=== PATIENT | female | born 1975 ===

== ENCOUNTER 2025-03-17 20:02 | Outpatient (REF) | payer OTHER, SELFPAY ==
--- OUTSIDE RECORDS SUMMARY | 2017-09-06 09:10 | XMS_ITS | Continuity of Care Document ---
Author Organization [facility] Address [address] [place] [address] Phone Care Team Providers Care Instructional Support Technician Name Role Phone Willa Mims MD Unavailable Unavailable Allergies, Adverse Reactions, Alerts Substance Reaction Status Criticality penicillin G Active No Information Problems Condition Type Effective Dates (start - stop) Clini [facility] Status Comments No Known Problems Procedures Procedure Date Cytopath Cerv/vag Thin Prep; R 18 Preven Meds E&m Estab Pt; 018 Smear Prim W/intrpt; Wet Mnt W 18 Culture Chlamydia Cult Bact Screen Only Sngl Org 18 Offic/outpt E&m Estab Low-mod 8 Cath-intro/inj Hysterosono/jose 15 Preven Meds E&m Estab Pt; 015 Postop F/u Visit Incld Global 4 Offic/outpt E&m Estab Low-mod 4 Cytopath Cerv/vag Thin Prep; R 14 Init Preven Meds E&m New Pt; Results Test Name Date and Time Measure Units Reference Range Abnormal Flag Status Comments Panel Description: THINPREP PAP SMEAR Final THINPREP PAP SMEAR See Note Final RMHCASE REPORTGynecologic Cytology Report Case: [id number] Authorizing Provider: Willa Mims, Collected: 09/06/2017 First Screen: Sade Valverde Received: 09/07/2017 04:29 PM Specimen: THINPREP PAP SMEAR, Cervix LMP5/31/18INTERPRETATI ONPredominance of coccobacilli consistent with shift in vaginal flora GENERAL CATEGORIZATIONNegative for intraepithelial lesion or malignancySPECIMEN ADEQUACYSatisfactory for evaluation; transformation zone/endocervical component presentEDUCATIONAL NOTEThe Pap smear is a screening test for the detection of cervical cancer and its precursor lesions. False positive and false negative results can occur. The test should be performed at regular intervals, and positive results should be confirmed before definitive therapy. Additional testing methods may be helpful in detecting abnormalities or in clinical management.HPV RESULTSHPV 16 : Negative HPV 18 : Negative HPV, Other HR Types : Negative Assay performed using [employer] 4800 system utilizing Real-Time PCR to amplify target HPV DNA. This system specifically identifies HPV16 and HPV18 while concurrently detecting the other twelve high risk types (31,33,35,39,45,51,52, 56,58,59,66,68). 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, [place], [place], [id number] , [place]. tel:[phone] Offic/outpt E&m Estab Low-mod [facility], [address], [place], [place], [id number], [place] tel:[phone] [facility] STD testing (chief complaint) Other specified noninflammatory disorders of vaginaSTD exposure 8 Fel[address]ouch. [address] [place], [id number] , [place]. tel: [phone] [facility], [address], [place], [place], [id number], tel:[phone] [facility] No Information 5 Gildardo Moise. [address] [place] [place], [place], [id number] , [place]. 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 [address] [place], [place], [id number] , [place]. tel: [phone] Offic/outpt E&m Estab Low-mod [facility], [address], [place], [place], [id number], [place] tel:[phone] [facility] post op tuble reversal in [place] (chief complaint) Postop check 4 Gildardo Moise. [address] [place], [id number] , [place]. 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 [place], [id number] , [place]. tel: [phone] Family History Family Member Type Diagnosis Age At Onset Maternal grandmother Problem (finding) malignant neopl asm of ovary Mother Problem (finding) hypertension Payers Payer name Insurance type Covered republican ID [facility] [place] [id number] Social History Type Description Quantity Date Captured Comments Alcohol Use Details Caffeine Use Details Unknown Tobacco Use Status No Information Smoking Status Never smoker Non-Smoking Tobacco Use Details : No Details Available : No Details Available [id number] SexFemale Vital Signs Date / Time: Height Weight BMI Pulse Rate Blood Pressure Temperature Respiratory Rate Body Surface Area Head Circumference Head Circ. Percentile Wt./Isaac. Percentile BMI percentile Pulse Ox Inhaled Ox 1:59 PM 62.00 in 91.626 kg (202.00 lbs) 36.9 5 kg/m eter (2) 124/82 mm[Hg] Chief Complaint And Reason For Visit From encounter dated '09/06/2017 14:10'. annual exam (chief complaint). Description: Currently : no. : 4. Parity: Term: 4. Livin. The patient states she uses none for control. Last LMP was 08/31/2017. Negative for dysmenorrhea. Negative for: breast discharge and breast lump(s). Menopausal symptoms negative for: night sweats. Pertinent negatives include dyspareunia and vaginal discharge. She does not take calcium. She does not take multivitamins. The patient does not use tobacco. She does drink alcohol. Additional information: [facility] pt has met DTM, pt is doing well w/ no complaints.. Reason For Referral Reason For Referral No Information Plan Of Treatment Date Type Action Status Future Order: Lab Order DNA PROB E FOR CHLAMYDIA (DNACT), Ordered on: Ordered Future Order: Lab Order DNA PROB E FOR GONORRHOEAE (DNAGC), Ordered on: Ordered Future Order: Lab Order ThinPrep Pap with Imaging-HPV test regardless of Pap result (T3), Ordered on: Ordered History Of Present Illness Encounter Date Complaint History Of Prese nt Illness annual exam Currently pregna nt: no. : 4. Parity: Term: 4. Livin. The patient states she uses none for control. Last LMP was 08/31/2017. Negative for dysmenorrhea. Negative for: breast discharge and breast lump(s). Menopausal symptoms negative for: night sweats. Pertinent negatives include dyspareunia and vaginal discharge. She does not take calcium. She does not take multivitamins. The patient does not use tobacco. She does drink alcohol. Additional information: GUILHERME pt has met DTM, pt is doing well w/ no complaints.. STD testing GUILHERME pt new to [facility]. Pt states that has been cheating for 4 months, has no sx but wants STD testing. annual exam Currently pregna nt: no. : 4. Parity: Term: 4. Livin. The patient states she uses none for control. Last LMP was 07/13/2014. Negative for dysmenorrhea. Negative for: breast discharge and breast lump(s). Menopausal symptoms negative for: hot flashes, insomnia and night sweats. Pertinent negatives include anxiety and depression. The patient does not use tobacco. She does drink alcohol. Additional information: Pt would like to discuss options for getting , had tubal reversal done. Negative hpv 2013. [place] op note in chart under cosultations [place] tuble revers al [place] (comments) Pt here for post [place] Doing well. No issues or problems. annual exam Pt doing well. I nterested in a tubal reversal. New to [facility]. annual exam (comments) Pt with h /o PP BPS, would like a reversal. Pt and boyfriend have 7 children but none between them. Normal cycles. Functional Status Date Functional Assessmen t No Information Instructions Date Instruction Additional Infor mation and her back together with counselling.offered contraception but declined. 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 GC/chlamydia sent. Blood work given for stds. discussed safe sex. Related to STD exposure Assessments Type Assessment Date assessment Encntr for applications developer exam (general) (r outine) w/o abn findings Mental Status Date Cognitive Assessment Orientation - [place] ed to time, place, person, situation. Patient Care Teams Name Effective Dates (start - stop) Status Members No Information
--- OUTSIDE RECORDS SUMMARY | 2025-03-17 14:30 | XMS_ITS | Encounter Summary ---
Author Organization [facility] Address [address] [place] [address] Care Team Providers Care Print Buyer Name Role Phone Asael Novoa DO Primary Care Provider + [phone] Reason for Visit * ReasonCommentsFollow-up Encounter Details DateTypeDepartmentCare Team (Latest Contact Info)Qxxhdjkxvrd39/15/2025 2:30 PM ESTOffice Visit NOMAlee MARQUEZ [address] [address] Corin Ascencio PA [address] [place], [place] [id number] Bartholin's gland abscess Social History Tobacco UseTypesPacks/DayYears UsedDateSmoking Tobacco: NeverSmokeless Tobacco: NeverAlcohol UseStandard Drinks/WeekCommentsYes1 (1 standard drink = 0.6 oz pure alcohol)2-4 drinks a [id number] Health LiteracyAnswerDate RecordedHow often do you need to have someone help you when you read instructions, pamphlets, or other written material from your doctor or pharmacy?Never12/25/2024Humiliation, Afraid, Rape, and Kick questionnaireAnswerDate RecordedWithin the last year, have you been afraid of your partner or ex-partner?No12/25/2024Within the last year, have you been humiliated or emotionally abused in other ways by your partner or ex-partner?No12/25/2024Within the last year, have you been kicked, hit, slapped, or otherwise physically hurt by your partner or ex-partner?No 12/25/2024Within the last year, have you been raped or forced to have any kind of sexual activity by your partner or ex-partner?No12/25/2024Social Connection and Isolation PanelAnswerDate RecordedIn a typical week, how many times do you talk on the phone with family, friends, or neighbors?More than three times a week12/25/2024How often do you get together with friends or relatives?Twice a week12/25/2024How often do you attend denominational or orthodox services?Patient nteznqal28/24/2025Do you belong to any clubs or organizations such as denominational groups, unions, fra[employer] ([place]) or athletic groups, or school groups?No12/25/2024How often do you attend meetings of the clubs or organizations you belong to?Patient tqoorcnl35/24/2025re you , , , , never , or living with a partner?Fdkupezw10/24/2025UDIT-CAnswerDate RecordedQ1: How often do you have a drink containing alcohol?Monthly or less12/25/2024Q2: How many drinks containing alcohol do you have on a typical day when you are drinking?1 or Q3: How often do you have six or more drinks on one occasion?Never12/25/2024Overall Financial Resource Strain (CARDIA)AnswerDate RecordedHow hard is it for you to pay for the very basics like food, housing, medical care, and heating?Not very hard12/25/2024PHQ-2AnswerDate RecordedPatient Health Questionnaire-2 [id number] mountain hospital [place] of Occupational Health - Occupational Stress QuestionnaireAnswerDate RecordedDo you feel stress - tense, restless, nervous, or anxious, or unable to sleep at night because your mind is troubled all the time - these days?To some jgjnqy7512/25/2024Exercise Vital SignAnswerDate RecordedOn average, how many days per week do you engage in moderate to strenuous exercise (like a brisk walk)?2 days12/25/2024On average, how many minutes do you engage in exercise at this level?30 min12/25/2024Hunger Vital SignAnswerDate RecordedWithin the past 12 months, you worried that your food would run out before you got the money to buymore.Never true12/25/2024 Within the past 12 months, the food you bought just didn't last and you didn't have money to get more.Never true12/25/2024PRAPARE - TransportationAnswerDate RecordedIn the past 12 months, has lack of transportation kept you from medical appointments or from getting medications?No12/25/2024In the past 12 months, has lack of transportation kept you from meetings, work, or from getting things needed for daily living?No12/25/2024Housing Stability Vital SignAnswerDate RecordedIn the last 12 months, was there a time when you were not able to pay the mortgage or rent on time?No12/25/2024Number of Times Moved in the Last Year Not on file12/25/2024t any time in the past 12 months, were you homeless or living in a prison (including now)?12/25/2024CommentsUnknownSex and Gender InformationValueDate RecordedSex Assigned at CzigkVvshai89/03/2024 3:18 PM EDTLegal JgnTangzv46/02/2024 3:53 PM EDTGender MmbluloiPjxajf13/03/2024 3:18 PM EDTSexual OrientationNot on filedocumented as of this encounter Last Filed Vital Signs Vital SignReadingTime TakenCommentsBlood Caatmrxk909/9003/17/2025 2:55 PM EST Pulse--Temperature--Respiratory Rate--Oxygen Saturation--Inhaled Oxygen Concentration--Cdiwfl22.6 kg (184 lb 4 oz)03/17/2025 2:55 PM ESTHeight--Body Mass Index32.6409 4:34 PM EDTdocumented in this encounter Progress Notes * JONATHAN Campbell - 03/17/2025 2:30 PM EST Images from the original note were not included. Reason for Appointment: Patient ID: Debbie Ferrer is a 49 y.o. female who presents for Follow-up Patient presents today for er follow up Bartholin cyst MEDICATIONS Current Outpatient Medications Medication Instructions amLODIPine-valsartan (Exforge) 5-160 MG tablet 1 tablet, Oral, Daily phentermine (ADIPEX-P) 37.5 mg, Oral, Daily before breakfast ALLERGIES Allergies Allergen Reactions Penicillins Anaphylaxis Bee Venom Other and Swelling PROBLEMS Active Ambulatory Problems Diagnosis Date Noted No Active Ambulatory Problems Resolved Ambulatory Problems Diagnosis Date Noted No Resolved Ambulatory Problems Past Medical History: Diagnosis Date Anxiety Obesity Varicella 1978 Visual impairment HISTORY PAST MEDICAL HISTORY SOCIAL HISTORY Past Medical History: Diagnosis Date Anxiety Obesity Varicella 1978 Visual impairment Social History Tobacco Use Smoking status: Never Smokeless tobacco: Never Substance Use Topics Alcohol use: Yes Alcohol/week: 1.0 standard drink of alcohol Types: 1 Standard drinks or equivalent per week Comment: 2-4 drinks a month Drug use: Never FAMILY HISTORY Family History Problem Relation Name Age of Onset Cancer Maternal Grandmother Loli Bobo SURGICAL HISTORY Past Surgical History: Procedure Laterality Date TONSILLECTOMY 1982 REVIEW OF SYSTEMS Review of Systems: Review of Systems Constitutional: Negative. HENT: Negative. Eyes: Negative. Respiratory: Negative. Cardiovascular: Negative. Gastrointestinal: Negative. Genitourinary: Negative. Musculoskeletal: Negative. Skin: Negative. Neurological: Negative. All other systems reviewed and are negative. Hematological: Negative. Endocrine: Negative. Allergic/Immunologic: Negative. OBJECTIVE Objective: Physical Exam Constitutional: Appearance: Normal appearance. She is normal weight. Genitourinary: Genitourinary Comments: Bartholin cyst, HENT: Head: Normocephalic. Cardiovascular: Rate and Rhythm: Normal rate. Pulses: Normal pulses. Pulmonary: Effort: Pulmonary effort is normal. Breath sounds: Normal breath sounds. Abdominal: Palpations: Abdomen is soft. Musculoskeletal: General: Normal range of motion. Neurological: General: No focal deficit present. Mental Status: She is alert and oriented to person, place, and time. Psychiatric: Mood and Affect: Mood normal. Behavior: Behavior normal. Thought Content: Thought content normal. Judgment: Judgment normal. Vitals and nursing note reviewed. Vitals: Estimated body mass index is 32.64 kg/m?? as calculated from the following: Height as of 12/26/24: 5' 3 . Weight as of this encounter: 184 lb 4 oz. BP: 130/90 No LMP recorded. Assessment/Plan ICD-10-CM 1. Bartholin's gland abscess N75.1 SURESWAB(R) ADVANCED VAGINITIS PLUS, TMA CHLAMYDIA TRACHOMATIS (GENITO/STI) Neisseria gonorrhea DNA probe, direct Anaerobic culture Aerobic culture Assessment/Plan Patient presents for follow up from er post I&D of a bartholin cyst. The area was anesthetized with lidocaine and small incision made with 11 blade. Copious amount of old blood was expressed fromthe area. Pt did feel pressure relief. I will place pt on bactrim ds, she was on doxy previously and did not tolerate medication well. Vaginal and wound cultures obtained. She was treated for bv with flagyl, if recurs or still present, we will place on metrogel. Pt verbalized understanding and agrees with plan of care Documented by JONATHAN Campbell on behalf of: JONATHAN Campbell documented in this encounter Miscellaneous Notes * Addendum Note - JONATHAN Campbell - 03/17/2025 2:30 PM ESTAddended by: CORIN ASCENCIO on: 03/17/2025 03:36 PM Modules accepted: Orders documented in this encounter Plan of Treatment DateTypeDepartmentCare Team (Latest Contact Info)Hmahxyzgrnf65/22/2025 11:00 AM ESTOffice Visit [facility] [address] [place] [phone] Asael Novoa, [address] [place] [address] NameTypePriorityAssociated DiagnosesOrder ScheduleSURESWAB(R) ADVANCED VAGINITIS PLUS, TMAPathology and CytologyRoutine Bartholin's gland abscess Ordered: 03/17/2025HLAMYDIA TRACHOMATIS (GENITO/STI)LabRoutine Bartholin's gland abscess Ordered: 03/17/2025Neisseria gonorrhea DNA probe, directLabRoutine Bartholin's gland abscess Ordered: 03/17/2025naerobic cultureMicrobiologyRoutine Bartholin's gland abscess Ordered: 03/17/2025erobic cultureMicrobiologyRoutine Bartholin's gland abscess Ordered: 03/17/2025documented as of this encounter Visit Diagnoses Diagnosis Bartholin's gland abscess Abscess of Bartholin's gland documented in this encounter Care Teams Team MemberRelationshipSpecialtyStart DateEnd Date Asael Novoa DO [address] [facility] [address] [place] [address] PCP - GeneralFamily Medicine10/18/23documented as of this encounter
--- OUTSIDE RECORDS SUMMARY | 2025-03-17 20:11 | XMS_ITS | Clinical Summary ---
Author Organization [facility] Address [address] [place] [address] Care Team Providers Care Chief Vendor Quality Name Role Phone Unavailable Primary Care Provider Unavailabl e Social History Tobacco UseTypesPacks/DayYears UsedDateSmoking Tobacco: Never Assessed CommentsUnknownSex and Gender InformationValueDate RecordedSex Assigned at Not on fileLegal DycAmaszs92/25/2014 11:57 PM EDTGender IdentityNot on file Sexual OrientationNot on file Plan of Treatment Not on file Insurance
--- OUTSIDE RECORDS SUMMARY | 2025-03-17 20:11 | XMS_ITS | Encounter Summary ---
Author Organization [facility] Address [address] [place] [address] Care Team Providers Care Air Deodorizer Servicer Name Role Phone Asael Novoa Primary Care Provider + [phone] Encounter Details DateTypeDepartmentCare Team (Latest Contact Info)Ntlcjufqkfu61/10/2025Travel Social History Tobacco UseTypesPacks/DayYears UsedDateSmoking Tobacco: NeverSmokeless Tobacco: NeverAlcohol UseStandard Drinks/WeekCommentsYes1 (1 standard drink = 0.6 oz pure alcohol)2-4 drinks a [id number] Health LiteracyAnswerDate RecordedHow often do you need [...] friends, or neighbors?More than three times a week09/24/2025How often do you get together with friends or relatives?Twice a week12/25/2024How often do you attend episcopalian or oriental orthodox services?Patient yzchqged52/24/2025Do you belong to any clubs or organizations such as episcopalian groups, unions, fraternal or athletic groups, or school groups?No12/25/2024How often do you attend meetings of the clubs or organizations you belong to?Patient xaakljos39/24/2025re you , , , , never , or living with a partner?Raxqlghn56/24/2025UDIT-CAnswerDate RecordedQ1: How often do you have a [...] and heating?Not very hard12/25/2024PHQ-2AnswerDate RecordedPatient Health Questionnaire-2 Ifqtx093Finintermountain healthcare [place] of Occupational Health - Occupational Stress QuestionnaireAnswerDate RecordedDo you feel stress - tense, restless, nervous, or anxious, or unable to sleep at night because your mind is troubled all the time - these days?To some vcgfjh8612/25/2024Exercise Vital SignAnswerDate RecordedOn average, how many days [...] were you homeless or living in a [facility] (including now)?No12/25/2024CommentsUnknownSex and Gender InformationValueDate RecordedSex Assigned at WplviUjzohl50/03/2024 3:18 PM EDTLegal CheAyhhda35/02/2024 3:53 PM EDTGender AsjoadobBlzkmj51/03/2024 3:18 PM EDTSexual OrientationNot on filedocumented as of this encounter Plan of Treatment DateTypeDepartmentCare Team (Latest Contact Info)Odpqevgiwve08/22/2025 11:00 AM ESTOffice Visit [facility] [address] [place] [phone] Asael Novoa DO [address] [place] [address] documented as of this encounter Visit Diagnoses Not on filedocumented in this encounter Care Teams Team MemberRelationshipSpecialtyStart DateEnd Date Asael Novoa DO [address] [place] [address] PCP - GeneralFamily Medicine10/18/23documented as of this encounter
--- OUTSIDE RECORDS SUMMARY | 2025-03-17 20:11 | XMS_ITS | Encounter Summary ---
Author Organization [facility] tem Address [facility] [id number] [address] [place] [address] Care Team Providers Care Clinical Support Manager Name Role Phone Asael Novoa DO Primary Care Provider + [phone] Encounter Details DateTypeDepartmentCare Team (Latest Contact Info)Vmkhpherxtb64/01/2025Results Follow-Up [facility] [address] [place] [id number] Bethanie Lynch RN Chlamydia/Gonorrhoeae by PCR, Urine, Molecular Vaginitis Panel PCR Social History Tobacco UseTypesPacks/DayYears UsedDateSmoking Tobacco: NeverSmokeless Tobacco: NeverAlcohol UseStandard Drinks/WeekCommentsNot Currently0 (1 standard drink = 0.6 oz pure alcohol)ChildcareAnswerDate DxkppbbdNfbrpuiisMtioadu86/12/2019 EmploymentAnswerDate AegehfzhMsbavglsisNznkdzq31/12/2019Hunger ScreeningAnswer Date RecordedWithin the past 12 months we worried whether our food would run out before we got money to buy more.Never True02/28/2025Within the past 12 months the food we bought just didn't last and we didn't have money to get more.Never True02/28/2025CommentsUnknownSex and Gender InformationValueDate RecordedSex Assigned at BirthNot on fileLegal YtiErjihc97/06/2015 11:38 AM EDT Gender IdentityNot on fileSexual OrientationNot on filedocumented as of this encounter Plan of Treatment Not on file documented as of this encounter Visit Diagnoses Not on filedocumented in this encounter Care Teams Team MemberRelationshipSpecialtyStart DateEnd Date Asael Novoa DO [address] [facility] [address] [place] [id number] PCP - GeneralOsteopathic Svqdmilx64/28/25documented as of this encounter
--- OUTSIDE RECORDS SUMMARY | 2025-03-17 20:11 | XMS_ITS | Encounter Summary ---
Author Organization [facility] Address [address] [place] [address] Care Team Providers Care Primer Powder Blender Wet Name Role Phone Asael Novoa Primary Care Provider + [phone] Encounter Details DateTypeDepartmentCare Team (Latest Contact Info)Kqprqcmbcez42/15/2025amboo flowsheet [facility] [facility] [address] [place] [address] Corin Urbina PA [address] [place], [facility] Social History Tobacco UseTypesPacks/DayYears UsedDateSmoking Tobacco: NeverSmokeless Tobacco: NeverAlcohol UseStandard Drinks/WeekCommentsYes1 (1 standard drink = 0.6 oz pure alcohol)2-4 drinks a [id number] Health LiteracyAnswerDate RecordedHow often do you need [...] relatives?Twice a week12/25/2024How often do you attend adventist or religion services?Patient isngqzmq61/24/2025Do you belong to any clubs or organizations such as adventist groups, [employer], Own[employer] or athletic groups, or school groups?No12/25/2024How often do you attend meetings of the clubs or organizations you belong to?Patient asjnypjc61/24/2025re you , , , , never , or living with a partner?Gtqbpsmz67/24/2025UDIT-CAnswerDate RecordedQ1: How often do you have a [...] and heating?Not very hard12/25/2024PHQ-2AnswerDate RecordedPatient Health Questionnaire-2 [facility] [place] of Occupational Health - Occupational Stress QuestionnaireAnswerDate RecordedDo you feel stress - tense, restless, nervous, or anxious, or unable to sleep at night because your mind is troubled all the time - these days?To some baqpus9212/25/2024Exercise Vital SignAnswerDate RecordedOn average, how many days [...] were you homeless or living in a half-way (including now)?No12/25/2024CommentsUnknownSex and Gender InformationValueDate RecordedSex Assigned at TofgsUxdhge25/03/2024 3:18 PM EDTLegal BxnPmlptg17/02/2024 3:53 PM EDTGender DzeodkcoRkmuss07/03/2024 3:18 PM EDTSexual OrientationNot on filedocumented as of this encounter Plan of Treatment DateTypeDepartmentCare Team (Latest Contact Info)Exwwlgvflew10/22/2025 11:00 AM ESTOffice Visit [facility] [address] [place] [phone] Asael Novoa DO [address] [place] [address] documented as of this encounter Visit Diagnoses Not on filedocumented in this encounter Care Teams Team MemberRelationshipSpecialtyStart DateEnd Date Asael Novoa DO [address] [place] [address] PCP - GeneralFamily Medicine10/18/23documented as of this encounter
--- OUTSIDE RECORDS SUMMARY | 2025-03-17 20:11 | XMS_ITS | Clinical Summary ---
Author Organization [facility] bitHound [facility] tem Address [id number] [address] [place] [address] Care Team Providers Care Project Asst Name Role Phone Asael Novoa DO Primary Care Provider Allergies Active AllergyReactionsCriticalityNoted IndfUuhtwniaFmoafgjsdim64/28/2025 Medications MedicationSigDispense QuantityRefillsLast FilledStart DateEnd DateStatus phentermine (ADIPEX-P) 37.5 mg tablet Take 1 tablet (37.5 mg total) by mouth every morning before breakfast.Active amLODIPine-valsartan (EXFORGE) 5-160 mg per tablet Take 1 tablet by mouth in the morning.Active doxycycline (VIBRAMYCIN) 100 mg capsule Take 1 capsule (100 mg total) by mouth in the morning and 1 capsule (100 mg total) before bedtime. Do all this for 10 days. 20 capsule 5105/12/2024Expired metroNIDAZOLE (FLAGYL) 500 mg tablet Take 1 tablet (500 mg total) by mouth in the morning and 1 tablet (500 mg total) before bedtime. Doall this for 7 days. 14 tablet Expired Encounters DateTypeDepartmentCare DomoYovinmdnwdo90/01/2025Results Follow-Up [facility] [address] [place] [address] Bethanie Lynch, ANGELITO Chlamydia/Gonorrhoeae by PCR, Urine, Molecular Vaginitis Panel PCR02/28/2025 11:30 PM EST - 03/01/2025 1:[address] [facility] [address] [place] [address] Sami Light MD Bartholin's gland abscess (Primary Dx) Discharge Disposition: Home02/28/2025Travelfrom Last 3 Months Social History Tobacco UseTypesPacks/DayYears UsedDateSmoking Tobacco: NeverSmokeless Tobacco: Never Tobacco Cessation:Counseling Given: Not Answered Alcohol UseStandard Drinks/WeekCommentsNot Currently0 (1 standard drink = 0.6 oz pure alcohol)ChildcareAnswerDate IpnigyalSfkbdktgdEtluqjd23/12/2019Employment AnswerDate UfcpkssmPptvzcblzdEktqnnw13/12/2019Hunger ScreeningAnswerDate RecordedWithin the past 12 months we worried whether our food would run out before we got money to buy more.Never True02/28/2025Within the past 12 months the food we bought just didn't last and we didn't have money to get more.Never True02/28/2025CommentsUnknownSex and Gender InformationValueDate RecordedSex Assigned at BirthNot on fileLegal LauInnwpc98/06/2015 11:38 AM EDT Gender IdentityNot on fileSexual OrientationNot on file Last Filed Vital Signs Vital SignReadingTime TakenCommentsBlood Ywvtffwl436/8703/01/2025 1:45 AM EST Eazse505803/01/2025 1:45 AM JGIVfonvaejkwr94.4 ??C (97.5 ??F)02/28/2025 11:09 PM ESTRespiratory Pjji869705/01/2024 1:45 AM ESTOxygen Pdbauhrgml34%02/28/2025 11:09 PM ESTInhaled Oxygen Concentration--Hqkxnt53.7 kg (178 lb)02/28/2025 11:09 PM ZQELrnfhc880.6 cm (5' 4 )02/28/2025 11:09 PM ESTBody Mass Index30.5502/28/2025 11:09 PM EST Plan of Treatment Health MaintenanceDue DateLast DoneCommentsDepression Mqdyxnxhn47/02/1987Adult BMI Follow Up Plan1992DTaP,Tdap and Td Vaccines (1 - Tdap)1993Pap Smear06/13/00602006/13/2013, 06/13/2013Zoster (Shingles) Vaccine (1 of 2) 2024OVID-19 Vaccine (3 - 2024- season), 12/12/2020 Influenza Uctywne0012/02/2024dult BMI Eyolxqvsf12Tobacco Wgxswfwom15 Medical Devices Not on file Procedures Procedure NamePriorityDate/TimeAssociated DiagnosisComments ED INCISION AND KENOVTDBSvixfzc85/29/2025 1:45 AM EST POCT , URINE (NUCG)Tuhpmdn1203/01/2025 1:12 AM EST POCT NURSING URINE MACROSCOPIC JKGfdyrqj59/29/2025 1:10 AM EST ER EXTRA URINE HAUNVUGFHI19/29/2025 12:51 AM EST ER EXTRA URINE RKBJXGWQWCC26/29/2025 12:51 AM EST ER EXTRA ABHRZOTUH73/29/2025 12:51 AM EST MOLECULAR VAGINITIS PANEL TOBGTOC01/29/2025 12:51 AM EST CHLAMYDIA/GONORRHOEAE BY PCR, SBIYJOWFH71/29/2025 12:51 AM EST from Last 3 Months Results * Incision and Drainage (03/01/2025 1:45 AM EST) Sami Saenz MD - 03/01/2025 1:45 AM EST Sami Light MD 03/01/2025 5:27 AM Incision and Drainage Date/Time: 03/01/2025 1:45 AM Performed by: Sami Light MD Authorized by: Sami Light MD ?? Consent: ??Consent obtained: ??Verbal ??Consent given by: ??Patient ??Risks, benefits, and alternatives were discussed: yes ?Risks discussed: ??Bleeding, infection, pain, incomplete drainage and damage to other organs ??Alternatives discussed: ??No treatment and delayed treatment [place] protocol: ??Patient identity confirmed: ??Verbally with patient Location: ??Type: ??Bartholin cyst ??Size: ??2 ??Location: Right labia. Pre-procedure details: ??Skin preparation: ??Povidone-iodine Sedation: ??Sedation type: ??None Anesthesia: ??Anesthesia method: ??Local infiltration ??Local anesthetic: ??Lidocaine 1% w/o epi Procedure type: ??Complexity: ??Simple Procedure details: ??Ultrasound guidance: no ?Needle aspiration: no ?Incision types: ??Stab incision ??Incision depth: ??Submucosal ??Drainage: ??Purulent ??Drainage amount: ??Moderate ??Wound treatment: ??Wound left open ??Packing materials: ??None Post-procedure details: ??Procedure completion: ??Tolerated well, no immediate complications Authorizing ProviderResult TypeResult StatusStcatherine Light MDPROCEDURE/MINOR SURGICAL ORDERABLESFinal Result * POCT , urine (03/01/2025 1:12 AM EST)ComponentValueRef RangeTest MethodAnalysis TimePerformed AtPathologist SignaturePO Urine NegativeNegative, Qswjegoozagde91/29/2025 1:19 AM ESTPROMEDIGARFIELD MEDICAL CENTERpecimen (Source)Anatomical Location / LateralityCollection Method / VolumeCollection TimeReceived PvhsSmhqg78/29/2025 1:12 AM EST 03/01/2025 1:18 AM EST Narrative Authorizing ProviderResult TypeResult Antonia Light MDPOINT OF CARE TEST ORDERABLESFinal ResultPerforming OrganizationAddressCity/State/ZIP CodePhone Number [facility] [address] [place] [address], * (ABNORMAL) POCT Nursing Urine Macroscopic UA (03/01/2025 1:10 AM EST)Component ValueRef RangeTest MethodAnalysis TimePerformed AtPathologist SignaturePO Urine Specific Gravity1.0201.010, 1.015, 1.020, 1.0379203/01/2025 1:12 AM EST [facility] Urine Leukocyte EsteraseSmall(A) Mznkxfij63/29/2025 1:12 AM ESTPROMEDIWEST HILLS [facility] Urine MqqtbliBbyojencNnfmddzw38/29/2025 1:12 AM [facility]PR[facility] Urine pH6.55.0, 6.0, 6.5, 7.0, 7.5, 8.0, 8.5, 5. 1:12 AM ESTPROMEDIWEST HILLS [facility] Urine ProteinNegativeNegative 03/01/2025 1:12 AM ESTPROSA[facility] Urine Glucose EzxxujdoZxggvpzy08/29/2025 1:12 AM [facility]PR[facility] Urine ZslqhnxVxrybxfwKyrtfbot43/29/2025 1:12 AM [facility]PR[facility] Urine Urobilinogen1.0 E.U./dL03/01/2025 1:12 AM ESTPR[facility] Urine TpewkildnRfxfwrclVxqyazgm26/29/2025 1:12 AM [facility]PR[facility] Urine Blood/HGBSmall(A)Negative 03/01/2025 1:12 AM ESTGOOD SAMARITAN HOSPITALpecimen (Source) Anatomical Location / LateralityCollection Method / VolumeCollection Time Received OrgqZizur88/29/2025 1:10 AM EST03/01/2025 1:12 AM EST Narrative Authorizing ProviderResult TypeResult StatusSteven C Chilcoot MDPOINT OF CARE TEST ORDERABLESFinal ResultPerforming OrganizationAddressCity/State/ZIP CodePhone Number [facility] [address] [place] [address], * (ABNORMAL) Molecular Vaginitis Panel PCR (03/01/2025 12:51 AM EST)Component ValueRef RangeTest MethodAnalysis TimePerformed AtPathologist Signature Bacterial Vaginosis DNADetected(A)Not Ndvfdgnk74/29/2025 11:31 AM [facility] LABORATORYComment:Indicator DNA target(s) related to bacterial vaginosis organisms, which include: Atopobium vaginae,Atopobium novel species, Megasphaera-1, and Bacterial Vaginosis Associated Bacteria-2 (BVAB-2), is/are Detected.[place] species group DNANot DetectedNot Detected 03/01/2025 11:31 AM [facility] LABORATORYComment:Meaghan group (C. albicans and/or C. tropicalis and/or C. parapsilosis and/or C. dubliniensis) target DNA is Not Detected.Meaghan glabrata/krusei DNANot DetectedNot Lqczudjb59/29/2025 11:31 AM [facility] Comment:Meaghan glabrata and/or Meaghan krusei target DNA is Not Detected. Trichomonas VaginalisNot DetectedNot Kkvxkegj49/29/2025 11:31 AM [facility] LABORATORYComment:Trichomonas vaginalis target DNA is Not Detected.Specimen (Source)Anatomical Location / LateralityCollection Method / VolumeCollection TimeReceived TimeSwabVaginal structure / Oumyqah7903/01/2025 12:51 AM EST03/01/2025 1:28 AM EST Narrative [facility] - 03/01/2025 11:31 AM EST Assay methodology is nucleic acid amplification by real-time PCR, performed on [employer] GeneXpert Instrument System. Authorizing ProviderResult TypeResult StatusStevsom Light MDMICROBIOLOGY - GENERAL ORDERABLESFinal ResultPerforming OrganizationAddressCity/State/ZIP Code Phone Number [facility] [address] [place] [address], * Extra Urine [place] (03/01/2025 12:51 AM EST)ComponentValueRef RangeTest Method Analysis TimePerformed AtPathologist SignatureExtra TubeAuto Resulted 03/01/2025 2:02 AM ESTPROMEDICA KA[facility]ER [facility]OUND[facility] HOSPITALpecimen (Source) Anatomical Location / LateralityCollection Method / VolumeCollection Time Received TimeUrineUrine specimen collection, clean catch / Exuruwa2203/01/2025 12:51 AM EST03/01/2025 1:42 AM EST Narrative Authorizing ProviderResult TypeResult StatusStevsom Light MDURINE ORDERABLES Final ResultPerforming OrganizationAddressCity/State/ZIP CodePhone Number [facility] [address] [place] [address], [place] * Extra Urine Culture (03/01/2025 12:51 AM EST)ComponentValueRef RangeTest MethodAnalysis TimePerformed AtPathologist SignatureExtra TubeAuto Resulted 03/01/2025 2:02 AM ESTPROMEDICA KAISER FOUNDATION HOSPITALpecimen (Source) Anatomical Location / LateralityCollection Method / VolumeCollection Time Received TimeUrineUrine specimen collection, clean catch / Braxfsc4203/01/2025 12:51 AM EST03/01/2025 1:28 AM EST Narrative Authorizing ProviderResult TypeResult StatusStcatherine Light MDURINE ORDERABLES Final ResultPerforming OrganizationAddressCity/State/ZIP CodePhone Number [facility]ITALVer[facility] [address] [place] [address], [place] * Chlamydia/Gonorrhoeae by PCR, Urine (03/01/2025 12:51 AM EST)ComponentValueRef RangeTest MethodAnalysis TimePerformed AtPathologist SignatureGONORRHOEAE PCR, LPkanshhmMkrgzvtw24/01/2025 1:19 PM [facility] Comment:Neisseria gonorrhoeae not detected by nucleic acid amplification. This does not exclude the possibility of infection because results are dependent on adequate specimen collection.CHLAMYDIA PCR, JJlkayrjeBednotig47/01/2025 1:19 PM [facility] LABORATORYComment:Chlamydia trachomatis not detected by nucleic acid amplification. This does not exclude the possibility of infection because results are dependent on adequate specimen collection. Specimen (Source)Anatomical Location / LateralityCollection Method / Volume Collection TimeReceived TimeUrineUrine specimen collection, clean catch / Lckmypc2103/01/2025 12:51 AM EST03/01/2025 1:29 AM EST Narrative Authorizing ProviderResult TypeResult StatusSami Light MDMICROBIOLOGY - GENERAL ORDERABLESFinal ResultPerforming OrganizationAddressCity/State/ZIP Code Phone Number [facility] [address] [place] [address], [place] [phone] * Extra Urine (03/01/2025 12:51 AM EST)ComponentValueRef RangeTest Method Analysis TimePerformed AtPathologist SignatureExtra TubeAuto Resulted 03/01/2025 2:02 AM ESTPROMEDICA KAISER FOUNDATION HOSPITALpecimen (Source) Anatomical Location / LateralityCollection Method / VolumeCollection Time Received TimeUrineUrine specimen collection, clean catch / Wbnbddx8803/01/2025 12:51 AM EST03/01/2025 1:28 AM EST Narrative Authorizing ProviderResult TypeResult StatusStevsom RUBALCAVA ORDERABLES Final ResultPerforming OrganizationAddressCity/State/ZIP CodePhone Number [facility] [address] [place] [address], from Last 3 Months Insurance Care Teams Team MemberRelationshipSpecialtyStart DateEnd Asael Novoa DO [address] [place] [address] PCP - GeneralOsteopathic Nojqxyli65/28/25
--- OUTSIDE RECORDS SUMMARY | 2025-03-17 20:11 | XMS_ITS | Clinical Summary ---
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 Name Role Phone Sommer Asael Melania DO Primary Care Provider [phone] Allergies Active AllergyReactionsCriticalityNoted DateCommentsBee VenomOther,Swelling 01/03/20248297AjdnorrxjirWjfcndgtsdfHzcm69/16/1976 Medications MedicationSigDispense QuantityRefillsLast FilledStart DateEnd DateStatus amLODIPine-valsartan (Exforge) 5-160 MG tablet Indications:Primary hypertensionTake 1 tablet by mouth Daily 90 tablet //ctive phentermine (Adipex-P) 37.5 MG tablet Indications:Class 3 severe obesity due to excess calories with serious comorbidity and body mass index (BMI) of40.0 to 44.9 in adult ([facility])Take 1 tablet (37.5 mg) by mouth in the morning. Take before meals. 30 tablet /tive sulfamethoxazole-trimethoprim (Bactrim DS) 800-160 MG per tablet Indications:Bartholin's gland abscessTake 1 tablet by mouth in the morning and 1 tablet before bedtime. Do all this for 7 days. 14 tablet /5Active phentermine (Adipex-P) 37.5 MG tablet Indications:Class 3 severe obesity due to excess calories with serious comorbidity and body mass index (BMI) of40.0 to 44.9 in adult ([facility])Take 1 tablet (37.5 mg) by mouth in the morning. Take before meals. 30 tablet Discontinued(Reorder) Encounters DateTypeDepartmentCare ApydKwupaoedynz63/15/2025 2:30 PM ESTOffice Visit NOMAlee [facility] [address] [place] [address] Corin Urbina PA Bartholin's gland qyqthfq9703/17/2025amboo flowsheet NOMAlee [facility] [address] [place] [address] Corin Urbina PA 03/12/20259808Ayodhf43/22/2025Refill [facility] [address] [place] [address] Asael Novoa, DO Class 3 severe obesity due to excess calories with serious comorbidity and body mass index (BMI) of40.0 to 44.9 in adult ([facility])01/23/2025Refill [facility] [address] [place] [address] Asael Novoa, Class 3 severe obesity due to excess calories with serious comorbidity and body mass index (BMI) of40.0 to 44.9 in adult ([facility])01/16/2025Telephone [facility] [address] [place] [address] Lela Reed MA 01/13/2025Results Follow-Up [facility] [address] [place] [address] Asael Novoa, DO Bilateral screening mammogram with tomosynthesis, CBC and differential, Comprehensive metabolic panel, Lipid panel01/10/2025 2:30 PM EDTAncillary Procedure [facility] [address] [place] [address] Encounter for screening mammogram for malignant neoplasm of yhzcqe2101/10/2025 Ivrrco5101/09/20250844Namqin34/25/2025 4:20 PM EDTOffice Visit [facility] [address] [place] [address] Asael Novoa, DO Wellness examination (Primary Dx); Encounter for screening mammogram for malignant neoplasm of breast; Encounter for screening for coronary artery disease; Class 3 severe obesity due to excess calories with serious comorbidity and body mass index (BMI) of40.0 to 44.9 in adult ([facility]); Primary ffwqvkgcecfa65/25/2025amboo flowsheet [facility] [address] [place] [address] Asael Novoa, DO 12/26/20245781Zrkhyb68/18/2025Travelfrom Last 3 Months Immunizations ImmunizationAdministration DatesNext DuePfizer Purple Cap SARS-CoV-2 Vaccination 01/02/2021,12/12/2020 Family History Medical HistoryRelationNameCommentsCancerMaternal GrandmotherElnora Czako RelationNameStatusCommentsMaternal GrandmotherElnora Czako Social History Tobacco UseTypesPacks/DayYears UsedDateSmoking Tobacco: NeverSmokeless Tobacco: Never Tobacco Cessation:Counseling Given: Yes Alcohol UseStandard Drinks/WeekCommentsYes1 (1 standard drink = 0.6 oz pure alcohol)2-4 drinks a fjzxvS0054 Health LiteracyAnswerDate RecordedHow often do you need [...] relatives?Twice a week12/25/2024How often do you attend confucianism or jewish services?Patient /24/2025Do you belong to any clubs or organizations such as confucianism groups, unions, fraternal or athletic groups, or school groups?No12/25/2024How often do you attend meetings of the clubs or organizations you belong to?Patient dmaymdpd38/24/2025re you , , , , never , or living with a partner?Enxlkaql38/24/2025UDIT-CAnswerDate RecordedQ1: How often do you have a [...] and heating?Not very hard12/25/2024PHQ-2AnswerDate RecordedPatient Health Questionnaire-2 Tueua683Finintermountain healthcare [place] [facility] - Occupational Stress QuestionnaireAnswerDate RecordedDo you feel stress - tense, restless, nervous, or anxious, or unable to sleep at night because your mind is troubled all the time - these days?To some hzfjmr5312/25/2024Exercise Vital SignAnswerDate RecordedOn average, how many days [...] were you homeless or living in a assisted (including now)?No12/25/2024CommentsUnknownSex and Gender InformationValueDate RecordedSex Assigned at DryuuPxksir51/03/2024 3:18 PM EDTLegal SdlQkbbwm46/02/2024 3:53 PM EDTGender QfupfidtXswbbf46/03/2024 3:18 PM EDTSexual OrientationNot on file Last Filed Vital Signs Vital SignReadingTime TakenCommentsBlood Fjhgrslu370/9003/17/2025 2:55 PM EST Lbltk02943/25/2025 4:34 PM MKLCxythxjnygo96.9 ??C (96.7 ??F)12/26/2024 4:34 PM EDTRespiratory Rate--Oxygen Rrmssamdyp12%12/26/2024 4:34 PM EDTInhaled Oxygen Concentration--Pwawuh28.6 kg (184 lb 4 oz)03/17/2025 2:55 PM KXRDymwgj171 cm (5' 3 )12/26/2024 4:34 PM EDTBody Mass Index32.6409 4:34 PM EDT Plan of Treatment DateTypeDepartmentCare Team (Latest Contact Info)Plkmtpkuzbf34/22/2025 11:00 AM ESTOffice Visit [facility] [address] [place] [address] Asael Novoa, DO [address] [place] [address] Health MaintenanceDue DateLast DoneCommentsCT Rsgnrjghgihh47/02/1975Colonoscopy 1974FIT1974FOBT1974 8718Zoxiwidboalgu36/02/1975Pap Smear09/06/2020 09/06/2017, 06/13/2013Cervical Cancer Bultmrcaq98/06/2023HPV/Hieuvt7209/06/2022 09/06/2017, 06/13/2013COVID-19 Vaccine ( season), 12/12/2020Influenza Vaccine (#1)12/02/20246164Hbwtewwll77/10/745534, 10/25/2023olorectal Cancer Ctpxnroua63/23/2027FIT-DNA Pneumococcal Vaccine: Pediatrics (0 to 5 Years) and At-Risk Patients (6 to 64 Years)Aged OutNo longer eligible based on patient's age to complete this topic Procedures Procedure NamePriorityDate/TimeAssociated DiagnosisCommentsBI MAMMOGRAM SCREENING TOMOSYNTHESIS BFDVITGNGVyorviu02/10/2025 2:35 PM EDT Encounter for screening mammogram for malignant neoplasm of breast LIPID LLTSVUmxylql99/10/2025 1:03 PM EDT Wellness examination Encounter for screening for coronary artery disease COMPREHENSIVE METABOLIC BKGEFLzqxyea44/10/2025 1:03 PM EDT Wellness examination Encounter for screening for coronary artery disease CBC (INCLUDES DIFF/PLT)Nlmupmo4901/10/2025 1:03 PM EDT Wellness examination Encounter for screening for coronary artery disease LAB COLOGUARD?? COLON CANCER SUBQGNHvwjaic46/23/2024 7:49 AM EDT Screening for colon cancer from Last 3 Months or Most Recently Relevant to Health Maintenance Results * Bilateral screening mammogram with tomosynthesis (01/10/2025 2:35 PM EDT) Anatomical RegionLateralityModalityBreastBilateralMammographySpecimen (Source) Anatomical Location / LateralityCollection Method / VolumeCollection Time Received Time01/11/2025 1:09 PM EDT Impressions 01/11/2025 1:16 PM EDT Impression: No specific evidence of malignancy seen in either breast. BIRADS 2 - Benign Findings DENSITY: There are scattered areas of fibroglandular density. FOLLOW-UP: Routine Screening Mammogram Board Certified Radiologists. ??Accredited by the ACR and FDA. MAMMOGRAPHY IS VERY IMPORTANT TO YOUR HEALTH. ??THE CITIZEN [place] CAN[place]ER SOCIETY GUIDELINES RECOMMEND THAT WOMEN 40 YEARS OF AGE AND OLDER SHOULD HAVE A MAMMOGRAM EVERY YEAR. A REMINDER LETTER WILL BE SENT AT THE APPROPRIATE TIME. ?? ELECTRONICALLY SIGNED BY: Hawk Liao M.D. Narrative 01/11/2025 1:16 PM EDT Examination: BI MAMMOGRAM SCREENING TOMOSYNTHESIS BILATERAL Clinical History: screening for breast cancer Technique: Screening digital mammography study of both breasts was performed with 2-D and 3-D tomosynthesis imaging. Study was compared to the prior exam dated 10/25/2023. Findings: There is no evidence of interval dominant spiculated mass, grouped microcalcifications, or skin thickening which would be suggestive of malignancy. ?? A few benign-appearing calcifications are seen on the left. A few small benign- appearing asymmetricdensities noted bilaterally similar to the prior study. Axillary lymph node is noted on the right which appears grossly unremarkable. Slightly visualized axillary lymph nodes suggested on the left which appear grossly unremarkable. Procedure Note Hawk Liao MD - 01/11/2025 Examination: BI MAMMOGRAM SCREENING TOMOSYNTHESIS BILATERAL Clinical History: screening for breast cancer Technique: Screening digital mammography study of both breasts wasperformed with 2-D and 3-D tomosynthesis imaging. Study was compared tothe prior exam dated 10/25/2023. Findings: There is no evidence of interval dominant spiculated mass,grouped microcalcifications, or skin thickening which would be suggestiveof malignancy. A few benign-appearing calcifications are seen on the left. A few smallbenign- appearing asymmetric densities noted bilaterally similar to theprior study. Axillary lymph node is noted on the right which appearsgrossly unremarkable. Slightly visualized axillary lymph nodes suggestedon the left which appear grossly unremarkable. IMPRESSION: Impression: No specific evidence of malignancy seen in either breast. BIRADS 2 - Benign Findings DENSITY: There are scattered areas of fibroglandular density. FOLLOW-UP: Routine Screening Mammogram Board Certified Radiologists. Accredited by the ACR and FDA. MAMMOGRAPHY IS VERY IMPORTANT TO YOUR HEALTH. THE CITIZEN [place] CAN[place] GUIDELINES RECOMMEND THAT WOMEN 40 YEARS OF AGE AND OLDER SHOULD HAVE AMAMMOGRAM EVERY YEAR. A REMINDER LETTER WILL BE SENT AT THE APPROPRIATE TIME. ELECTRONICALLY SIGNED BY: Hawk Liao M.D. Authorizing ProviderResult TypeResult StatusTimkalyn Melania Novoa DOI BI PROCEDURES Final Result * CBC and differential (01/10/2025 1:03 PM EDT)ComponentValueRef RangeTest MethodAnalysis TimePerformed AtPathologist SignatureWHITE BLOOD CELL COUNT6.6 3.8 - 10.8 Thousand/uLQUESTRED BLOOD CELL COUNT4.723.80 - 5.10 Million/uLQUEST GBWFSLJEWB43.711.7 - 15.5 g/gMZSMRXTUFAQUALNR86.235.0 - 45.0 %GINQSSYP80.680.0 - 100.0 bZCZKERDEO44.127.0 - 33.0 vbJLWNTITTL63.332.0 - 36.0 g/dLQUESTComment: For adults, a slight decrease in the calculated MCHC value (in the range of 30 to 32 g/dL) is most likely not clinically significant; however, it should be interpreted with caution in correlation with other red cell parameters and the patient's clinical condition. RDW11.911.0 - 15.0 %QUESTPLATELET LZJZC246468 - 400 Thousand/uLQUESTMPV9.77.5 - 12.5 fLQUESTABSOLUTE NEUTROPHILS3,6171,500 - 7,800 cells/uLQUESTABSOLUTE LYMPHOCYTES2,749460 - 3,900 cells/uLQUESTABSOLUTE MOFVASSAV034629 - 950 cells/uL QUESTABSOLUTE ORYCOEICYRV5852 - 500 cells/uLQUESTABSOLUTE WRFZROKWY280 - 200 cells/zOACXOJZZNANIULOTY67.8%VIOHMHZDOWIZUFMU41.5%QUESTMONOCYTES6.0%QUEST EOSINOPHILS1.1%QUESTBASOPHILS0.6%QUESTSpecimen (Source)Anatomical Location / LateralityCollection Method / VolumeCollection TimeReceived TimeBloodVenous blood specimen / Hjmbazs8801/10/2025 1:03 PM EDT1 1:04 PM EDT Narrative [facility] - 01/11/2025 7:29 AM EDT FASTING:YES FASTING: YES Resulting Agency Comment Performing Organization Information ?Site ID: QPT ?Name: [facility] ?Address: [address] [place] [address], [address] [place] [phone] ?Director: Charlie Landis MD Authorizing ProviderResult TypeResult StatusTimkalyn Novoa DOLAB BLOOD ORDERABLESFinal ResultPerforming OrganizationAddressCity/State/ZIP CodePhone Number [facility] * (ABNORMAL) Lipid panel (01/10/2025 1:03 PM EDT)ComponentValueRef RangeTest MethodAnalysis TimePerformed AtPathologist SignatureCHOLESTEROL, SFIWV766<200 mg/dLQUESTHDL RQZTPAZASIE94> OR = 50 mg/iWXEXYGPJMIQMSOHVMTF306<150 mg/dLQUEST LDL UZUTVCWPVWQ762(H)mg/dL (calc)QUESTComment: Reference range: <100 Desirable range <100 mg/dL for primary prevention; <70 mg/dL for patients with CHD or diabetic patients with > or = 2 CHD risk factors. LDL-C is now calculated using the Mal-Reyna calculation, which is a validated novel method providing better accuracy than the Friedewald equation in the estimation of LDL-C. Mal SS et al. KALPANA. 2013;310(19): 2321-3334 (http://education.[employer]s.com/faq/BMD544) CHOL/HDLC RATIO3.1<5.0 (calc)QUESTNON HDL CVDRRBQPHJJ818<130 mg/dL (calc)QUEST Comment: For patients with diabetes plus 1 major ASCVD risk factor, treating to a non-HDL-C goal of <100 mg/dL (LDL-C of <70 mg/dL) is considered a therapeutic option. Specimen (Source)Anatomical Location / LateralityCollection Method / Volume Collection TimeReceived TimeBloodVenous blood specimen / Gxnjpvq5201/10/2025 1:03 PM EDT1 1:04 PM EDT Narrative [facility] - 01/11/2025 7:29 AM EDT FASTING:YES FASTING: YES Resulting Agency Comment Performing Organization Information ?Site ID: QPT ?Name: [facility] ?Address: [facility] , [address] [place] [phone] ?Director: Charlie Landis MD Authorizing ProviderResult TypeResult StatusTimkalyn Novoa DOLAB BLOOD ORDERABLESFinal ResultPerforming OrganizationAddressCity/State/ZIP CodePhone Number [facility] * (ABNORMAL) Comprehensive metabolic panel (01/10/2025 1:03 PM EDT)Component ValueRef RangeTest MethodAnalysis TimePerformed AtPathologist SignatureGlucose 8765 - 99 mg/dLQUESTComment: ? Fasting reference interval BUN87 - 25 mg/dLQUESTCreatinine0.820.50 - 1.03 mg/tXHKINXLYRR08> OR = 60 mL/min/1.46z9CGTSIYQV/CREATININE RATIOSEE NOTE: (calc)QUESTComment: ?? Not Reported: BUN and Creatinine are within ?? reference range. ? Xmmmgh897369 - 146 mmol/LQUESTPotassium, Bld3.63.5 - 5.3 mmol/HORABIQuuxosbx932 98 - 110 mmol/LQUESTCarbon Uzrlhot7608 - 32 mmol/LQUESTCalcium9.48.6 - 10.4 mg/dLQUESTPROTEIN, TOTAL6.96.1 - 8.1 g/dLQUESTALBUMIN4.33.6 - 5.1 g/dLQUEST GLOBULIN2.61.9 - 3.7 g/dL (calc)QUESTALBUMIN/GLOBULIN RATIO1.71.0 - 2.5 (calc) QUESTBILIRUBIN, TOTAL0.60.2 - 1.2 mg/dLQUESTALKALINE BWIARGMQJJY9773 - 153 U/L QUESTAST5(L)10 - 35 U/GYZQJHQFJ10 - 29 U/LQUESTSpecimen (Source)Anatomical Location / LateralityCollection Method / VolumeCollection TimeReceived TimeBlood Venous blood specimen / Aslgfrx4701/10/2025 1:03 PM EDT1 1:04 PM EDT Narrative [facility] - 01/11/2025 7:29 AM EDT FASTING:YES FASTING: YES Resulting Agency Comment Performing Organization Information ?Site ID: QPT ?Name: [facility] ?Address: [facility] , [address] [place] [address] ?Director: Charlie Landis MD Authorizing ProviderResult TypeResult StatusTimkalyn Novoa DOLAB BLOOD ORDERABLESFinal ResultPerforming OrganizationAddressCity/State/ZIP CodePhone Number [facility] * Cologuard?? colon cancer screening (10/24/2023 7:49 AM EDT)ComponentValueRef RangeTest MethodAnalysis TimePerformed AtPathologist SignatureNONINV COLON CA DNA+OCC BLD SCRN STL-NSMSzyquncaNhmurcjs92/30/2024 10:47 AM EDTEXHorizon Pharma (CLIA #:[id number])Comment: NEGATIVE TEST RESULT. A negative Cologuard result indicates a low likelihood that a colorectal cancer (CRC) or advanced adenoma (adenomatous polyps with more advanced pre-malignant features) ??is present. The chance that a person with a negative Cologuard test has a colorectal cancer is less than 1in 1500 (negative predictive value >99.9%) or has an advanced adenoma is less than 5.3% (negative predictive value 94.7%). These data are based on a prospective cross-sectional study of 10,000individuals at average risk for colorectal cancer who were screened with both Cologuard and colonoscopy. (Mac Wilde. et al, N Engl J Med 2014;370(14):2504-4939) The normal value (reference range) for this assay is negative. COLOGUARD RE-SCREENING RECOMMENDATION: Periodic colorectal cancer screening is an important part ofpreventive healthcare for asymptomatic individuals at average risk for colorectal cancer. ??Following a negative Cologuard result, the [place] [employer] and U.S. Multi-Society Task Force screening guidelines recommend a Cologuard re-screening interval of 3 years. References: [place] [employer] Guideline for Colorectal Cancer Screening: https://www.cancer.or g/cancer/yuoyi-syctjo-oasbmo/wukyvtxya-inrielgem-hdpoyzv/acs-recommendations.htm kostas GAMBLE, Eulalia LAWTON, Nohelia ERVIN, Colorectal Cancer Screening: Recommendations for Physicians and Patients from the U.S. Multi-Society Task Force on Colorectal Cancer Screening , Am J Gastroenterology 2017; 112:0662-5514. TEST DESCRIPTION: Composite algorithmic analysis of stool DNA-biomarkers with hemoglobin immunoassay. ?? Quantitative values of individual biomarkers are not reportable and are not associated with individual biomarker result reference ranges. Cologuard is intended for colorectal cancer screening ofadults of either sex, 45 years or older, who are at average-risk for colorectal cancer (CRC). Cologuard has been approved for use by the U.S. FDA. The performance of Cologuard was established in a cross sectional study of average-risk adults aged 50-84. Cologuard performance in patients ages 45 to 49 years was estimated by sub-group analysis of near-age groups. Colonoscopies performed for a positive result may find as the most clinically significant lesion: colorectal cancer [4.0%], advanced adenoma (including sessile serrated polyps greater than or equal to 1cm diameter) [20%] or non- advanced adenoma [31%]; or no colorectal neoplasia [45%]. These estimates are derived from a prospective cross-sectional screening study of 10,000 individuals at average risk for colorectal cancer who were screened with both Cologuard and colonoscopy. (Mac Kelsey al, N Engl J Med 2014;370(14):1707-7029.) Cologuard may produce a false negative or false positive result (no colorectal cancer or precancerous polyp present at colonoscopy follow up). A negative Cologuard test result does not guarantee the absence of CRC or advanced adenoma (pre-cancer). The current Cologuard screening interval is every 3 years. ([place] [employer] and U.S. Multi-Society Task Force). Cologuard performance data in a 10,000 patient pivotal study using colonoscopy as the reference method can be accessed at the following location: www.CloudCrowd.iMICROQ/results. Additional description of the Cologuard test process, warnings and precautions can be found at www.[employer]Com[employer]inerd.com. Specimen (Source)Anatomical Location / LateralityCollection Method / Volume Collection TimeReceived TimeStool specimen (specimen)10/24/2023 7:49 AM EDT 10/25/2023 1:15 PM EDT Narrative Authorizing ProviderResult TypeResult StatusAsael Novoa DOLAB MOLECULAR DIAGNOSTICS ORDERABLESFinal ResultPerforming OrganizationAddressCity/State/ZIP CodePhone Number [facility] (CLIA #:[id number]) [place] [address] [place] [address], from Last 3 Months or Most Recently Relevant to Health Maintenance Insurance * Guarantor: Debbie FerrerAccount TypeRelation to PatientDate of BirthPhone Billing AddressPersonal/RknldgPoeb26/02/1976 [address] [place] [address] Care Teams Team MemberRelationshipSpecialtyStart DateEnd Date Asael Novoa DO [address] [place] [facility] [address] [place] [address] PCP - GeneralFamily Medicine10/18/23
--- OUTSIDE RECORDS SUMMARY | 2025-03-17 20:11 | XMS_ITS | Clinical Summary ---
Author Organization [facility] Address [address] [place] [address] Care Team Providers Care Medical Dermatologist Name Role Phone Giovani Tomlin Primary Care Provider [phone] Allergies Active AllergyReactionsCriticalityNoted HvqsQodncffjAcelxzhjymo59/09/2021 Social History Tobacco UseTypesPacks/DayYears UsedDateSmoking Tobacco: Never Assessed CommentsUnknownSex and Gender InformationValueDate RecordedSex Assigned at Not on fileLegal FhtWukely02/11/2020 7:48 PM ESTGender IdentityNot on fileSexual OrientationNot on file Last Filed Vital Signs Vital SignReadingTime TakenCommentsBlood Zktccqxz087/7703 7:25 AM EST Rqnch9687 7:25 AM DEAVcydzcgqpks72.7 ??C (98.1 ??F)06/09/2020 7:25 AM ESTRespiratory Xtvr6488 7:25 AM ESTOxygen Dtggsohqtu53%06/09/2020 7:27 AM ESTInhaled Oxygen Concentration--Weight--Qnhvrs651 cm (5' 3 )06/09/2020 7:26 AM ESTBody Mass Index-- Plan of Treatment Health MaintenanceDue DateLast DoneCommentsHEPATITIS C VIRUS SWNGEXCJN18/02/1975 IJNLCXM15 1974HIV SCREENING SKFNCGVYYD74/02/1990HEP B VACCINE (1 of 3 - 19+ 3-dose series)1993TDAP (ADULT)1993CERVICAL CANCER SCREENING BXQFAIXWBX11/02/1996LIPID ZGOIGSETR59/02/2015MAMMOGRAM SCREENING DISCUSSION 2014COLORECTAL CANCER SCREENING DAGQFBHLMI59/02/2020PNEUMOCOCCAL VACCINE SERIES (1 of 1 - PCV)2024ZOSTER (SHINGLES) VACCINE (1 of 2)2024 COVID-19 VACCINE (1 - 2024-26 season)2024INFLUENZA VACCINE (#1)2024 [place] [address] Care Teams Team MemberRelationshipSpecialtyStart DateEnd Date Giovani Tomlin DO [address] [place] [address] [place] [id number] PCP - GeneralFamily Medicine06/09/20
== END 2025-03-17 20:03 | disposition home or self-care (01) ==
LOC: LAB 20:02
PROVIDERS: Visit Provider Physician Assistant
DX: N75.1 Abscess of Bartholin's gland (principal)
CPT/HCPCS: 87070; 87075